=== PATIENT | female | born 1985 | race Caucasian/White ===

== ENCOUNTER → 2017-01-10 | Outpatient (CLI) | payer OTHER | LOC: FIMAGING 14:27 | PROVIDERS: ATTEND Obstetrics & Gynecology | DX: Z34.02 Encounter for supervision of normal first pregnancy, second trimester (principal); Z3A.19 19 weeks gestation of pregnancy ==

== ENCOUNTER → 2017-04-21 | Outpatient (CLI) | payer OTHER | LOC: FIMAGING 08:24 | PROVIDERS: ATTEND Obstetrics & Gynecology | DX: O36.5930 Maternal care for other known or suspected poor fetal growth, third trimester, not applicable or unspecified (principal); Z3A.34 34 weeks gestation of pregnancy ==

== ENCOUNTER → 2017-05-05 | Outpatient (CLI) | payer OTHER | LOC: FIMAGING 08:50 | PROVIDERS: ATTEND Obstetrics & Gynecology | DX: O36.5931 Maternal care for other known or suspected poor fetal growth, third trimester, fetus 1 (principal); Z3A.36 36 weeks gestation of pregnancy ==

== ENCOUNTER 2017-05-10 17:00 | Inpatient (IN) | payer OTHER ==
--- NOTE | 2017-05-10 12:48 | GHP ---
[f rep st] PREOP HISTORY AND PHYSICAL DATE OF ADMISSION: 05/10/2017 CHIEF COMPLAINT: Intrauterine at 37 and 0/7 weeks gestation with IUGR , and decreased movement. HISTORY OF PRESENT ILLNESS: Latrice is a 32-year-old, G1, P0 female who was diagnosed with IUGR at approximately 33 weeks gestation, has been undergoing NSTs that barely meet criteria for reactivity, and she has had less movement. Her Dopplers have been normal. Recommendation for delivery secondary to IUGR with complications. PAST MEDICAL HISTORY: Negative. PAST SURGICAL HISTORY: Had elbow surgery and removal of tonsils. FAMILY HISTORY: Noncontributory. 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 PHYSICAL EXAMINATION: VITAL SIGNS: Stable. ABDOMEN: Gravid, nontender. Estimated weight is 5-1/2 pounds. Her cervical exam, Valle will be placed. LABS: Significant for A positive, antibody screen negative. Rubella immune. RPR nonreactive. Hepatitis B surface antigen negative, HIV negative, gonorrhea and chlamydia negative, 1-hour glucose 71 and GBS was negative. ASSESSMENT AND PLAN: This is a 32-year-old, G1, P0, female who is at 37 and 0/ 7 weeks gestation, being induced for IUGR. Plan on Valle bulb placement and Pitocin and GBS is negative. /[id number]/MODL MTDD
[2017-05-10] MEDS ORDERED: LR 1,000 ML IV PRN (17:33)
[2017-05-10] MEDS ORDERED: TERBUTALINE SULFATE 1 MG/ML VIAL IV PRN (17:33)
[2017-05-10] MEDS ORDERED: OLIVE OIL 118 ML BTL MISC PRN (17:33)
[2017-05-10] MEDS ORDERED: OXYTOCIN/RINGERS LACTATE 1,000 ML IV PRN (17:33)
[2017-05-10] MEDS ORDERED: EPSOM SALT 454 GM TP PRN (17:33)
[2017-05-10] MEDS ORDERED: LIDOCAINE 1% 300 MG/30 ML SDV ONE (18:36)
[2017-05-10] MEDS ORDERED: TERBUTALINE SULFATE 1 MG/ML VIAL ONE (18:37)
[2017-05-10] MEDS ORDERED: AMMONIA AROMATIC 1 EACH AMP IH ONE (18:37)
[2017-05-10] MEDS ORDERED: MISOPROSTOL 200 MCG TAB ONE (18:37)
[2017-05-10] MEDS ORDERED: OXYTOCIN 10 UNIT/ML VIAL ONE (18:37)
[2017-05-10] MEDS ORDERED: OLIVE OIL 118 ML BTL ONE (18:37)
[2017-05-10] MEDS ORDERED: ACETAMINOPHEN 325 MG TAB PO PRN (18:39)
[2017-05-10] MEDS ORDERED: CALCIUM CARBONATE 500 MG CHEWABLE TAB PO PRN (18:40)
[2017-05-10] MEDS ORDERED: ZOLPIDEM TARTRATE 5 MG TAB PO PRN (18:40)
[2017-05-10 18:41] LABS: % IMMATURE GRANULYOCYTES 0.8 % (0.0-1.1); ABSOLUTE IMMATURE GRANULOCYTES 0.09 10^3/uL (0.00-0.10); ADD DIFF? NO; ADD MORPH? NO; ADD SCAN? NO; ATYPICAL LYMPHOCYTE FLAG 0 (0-99); FRAGMENT RBC FLAG 0 (0-99); HEMATOCRIT 37.4 % (38.0-47.0); LEFT SHIFT FLG 0 (0-99); LIPEMIA HEMOLYSIS FLAG 90 (0-99); MEAN CELL HEMOGLOBIN 32.6 pg (27.9-34.1); MEAN CELL HEMOGLOBIN CONCENTR. 34.8 g/dL (32.4-36.7); MEAN CELL VOLUME 93.7 fL (81.5-99.8); MEAN PLATELET VOLUME 10.3 fL (8.7-11.7); PLATELET CLUMPS FLAG 0 (0-99); PLATELET COUNT 207 10^3/uL (150-400); RED BLOOD CELL COUNT 3.99 10^6/uL (4.18-5.33); RED CELL DISTRIBUTION WIDTH 12.4 % (11.5-15.2)
[2017-05-11] MEDS: OXYTOCIN/LR *STANDARD DOSE PROTOCOL IV SCH ×2 (04:35→04:38)
--- NOTE | 2017-05-11 08:39 | OBPROG ---
OBG Labor Progress Note Assessment/Plan: Assessment: 32 yo @ 37 1/7, IOL for IUGR with decreased movement, doing well. Plan: 05/11/17 08:37 FWB reassuring. GBS neg. Epidural as desired. Expect . Subjective: 32 yo @ 37 1/7, IOL for IUGR with decreased movement, doing well. Feels mild contractions. Objective: 05/10/17 18:25 Patient ABO/Rh A POSITIVE 05/10/17 18:25 VSS - SVE Dilation (cm): 4 Effacement (%): 80 Station: -1 Cervantes Current Contraction Pattern: Regular FHR (bpm): 140 FHR Pattern Variability: Moderate FHR Category: 2 Membranes: AROM Amniotic Fluid Color: Clear - Procedures Non-surgical Procedures: Amniotomy Oxytocin Orders Assessment - Pre-Induction/Augmentation Assessment Gestational Age: 37 week(s) and 0 day(s) ICD10 Worksheet Patient Problems: Problems Problem Status Onset IUGR (intrauterine growth restriction) affecting care of mother Acute
[2017-05-11] MEDS ORDERED: fentaNYL 2MCG/ML/BUP 0.1% RTU 100 ML BAG EP ONE (10:11)
[2017-05-11] MEDS ORDERED: PHENYLEPHRINE HCL 100 MCG/ML SYR ONE (10:11)
[2017-05-11] MEDS ORDERED: BUPIVACAINE 0.25% 30 ML SDV ONE (10:11)
[2017-05-11] MEDS ORDERED: fentaNYL 100 MCG/2 ML INJ ONE (10:12)
--- NOTE | 2017-05-11 11:18 | PREANESOB ---
Obstetric Pre-Anesthesia Info - General Info Proposed Procedure: Labor and delivery with pitocin. : 1 Para: 0 WBD: 37 - Info Status: Full Term Monitors: External FHR Baseline (bpm): 130 FHR Pattern: Reassuring - Labor Status Cervical Dilation per last OB SVE: 4 Station per last OB SVE: -1 Pitocin: In Use Indications for Labor Analgesia: Induction of Labor, Pain Control Labor Epidural: Proposed Anesthesia ROS: Prior general anesthesia. Allergies/Adverse Reactions: Allergy/AdvReac Type Severity Reaction Status Date / Time No Known Allergies Allergy Unverified 05/10/17 17:30 Home Medications: Medication Instructions Recorded Vit27&Calcium/Iron/FA 1 tab 05/10/17 [] Visit Medications: Generic Name Dose Route Start Last Admin Trade Name Freq PRN Reason Stop Dose Admin Acetaminophen 650 mg 05/10/17 18:39 Tylenol PO 11/06/17 18:38 Q6H PRN HEADACHE Calcium Carbonate 500 - 1,000 mg 05/10/17 18:40 Tums PO 11/06/17 18:39 Q4H PRN GERD Lactated Ringer's 1,000 mls @ 0 mls/hr 05/10/17 17:33 05/11/17 04:30 Lr IV 11/06/17 17:32 1,000 mls PRN PRN Administration SEE PROTOCOL CONDITIONS Protocol Per Protocol Oxytocin/Lactated Ringer's 1,000 mls @ 150 mls/hr 05/10/17 17:33 Pitocin 20 Units/Lr (Premix) IV PRN PRN Post- bleeding Oxytocin/Lactated Ringer's 500 mls @ 0 mls/hr 05/11/17 04:00 05/11/17 04:38 Pitocin 30 Units/Lr (Premix) IV 11/07/17 03:59 500 mls CONT ANGEL Administration Protocol Per Protocol Ibuprofen 600 mg 05/10/17 17:33 Motrin PO 11/06/17 17:32 Q6HRS PRN post , inflammation Magnesium Sulfate 454 gm 05/10/17 17:33 Epsom Salt TP 11/06/17 17:32 Q1H PRN perineal discomfort [place] Oil 118 ml 05/10/17 17:33 Sweet Oil MISC 11/06/17 17:32 ONCE PRN preneal massage Terbutaline Sulfate 0.25 mg 05/10/17 17:33 Brethine IV 11/06/17 17:32 ONCE PRN Tachysystole Zolpidem Tartrate 5 mg 05/10/17 18:40 05/10/17 21:37 Ambien PO 11/06/17 18:39 5 mg HS PRN Administration Sleep/Insomnia Discontinued Medications Generic Name Dose Route Start Last Admin Trade Name Sky PRN Reason Stop Dose Admin Ammonia (Aromatic Spirit) Confirm 05/10/17 18:37 Ammonia Aromatic Administered 05/10/17 18:38 Dose 1 each IH .STK-MED ONE Bupivacaine HCl Confirm 05/11/17 10:11 Sensorcaine 0.25% Sdv Administered 05/11/17 10:12 Dose 30 ml .ROUTE .STK-MED ONE Ephedrine Sulfate Confirm 05/10/17 18:37 Ephedrine Sulfate Administered 05/10/17 18:38 Dose 50 mg .ROUTE .STK-MED ONE Fentanyl Confirm 05/11/17 10:12 Sublimaze Administered 05/11/17 10:13 Dose 100 mcg .ROUTE .STK-MED ONE Fentanyl/Bupivacaine HCl Confirm 05/11/17 10:11 Fentanyl/Bupivacaine/Ns 2 Mcg/Ml 0.1% (Premix Administered 05/11/17 10:12 Dose 100 ml EP .STK-MED ONE Lidocaine HCl Confirm 05/10/17 18:36 Lidocaine Hcl 1% Administered 05/10/17 18:37 Dose 300 mg .ROUTE .STK-MED ONE Misoprostol Confirm 05/10/17 18:37 Cytotec Administered 05/10/17 18:38 Dose 800 mcg .ROUTE .STK-MED ONE [place] Oil Confirm 05/10/17 18:37 Sweet Oil Administered 05/10/17 18:38 Dose 118 ml .ROUTE .STK-MED ONE Oxytocin Confirm 05/10/17 18:37 Pitocin Administered 05/10/17 18:38 Dose 40 unit .ROUTE .STK-MED ONE Phenylephrine HCl Confirm 05/11/17 10:11 Neosynephrine Administered 05/11/17 10:12 Dose 1,000 mcg .ROUTE .STK-MED ONE Terbutaline Sulfate Confirm 05/10/17 18:37 Brethine Administered 05/10/17 18:38 Dose 1 mg .ROUTE .STK-MED ONE - Anesthesia History Response to Local Anesthetics: Normal Anesthesia & Operative History: No Prior Problems Family Anesthesia History: Negative - Social History Substance Use/Abuse: Denies - Focused Exam Blood Pressure: 91/50 Heart Rate: 76 Respiratory Rate: 16 Height/Weight (Nursing): Height 171.45 cm Weight 90.265 kg Physical Exam: Within normal limits. ASA Status: II Labs: 05/10/17 18:25 Patient ABO/Rh A POSITIVE 05/10/17 18:25 - Plan Anesthetic Plan: CSE Consent Signed and on Chart: Yes Patient/Guardian Understands and Agrees to Plan: Yes Urgent/Emergent Case: Frederic blevins completed preop but documented later for safe timely pt care
[2017-05-11] MEDS ORDERED: PHENYLEPHRINE HCL 100 MCG/ML SYR IVP PRN (11:20)
[2017-05-11] MEDS ORDERED: ONDANSETRON 4 MG/2 ML VIAL IVP PRN (11:20)
--- NOTE | 2017-05-11 11:20 | POSTANESTH ---
Post Anesthetic Evaluation Cardiovascular Status: Normal, Stable Respiratory Status: Normal, Stable, Similar to Pre-op Cond. Level of Consciousness/Mental Status: Can Participate in Eval, Alert and Oriented Pain Control: Adequate, Prn Tx Ordered Nausea/Vomiting Control: Adequate, Prn Tx Ordered Complications Possibly Related to Anesthesia: None Noted
[2017-05-11] MEDS ORDERED: LR 500 ML IV SCH (11:30)
[2017-05-11] MEDS ORDERED: fentaNYL 2MCG/ML/BUP 0.1% RTU 100 ML EP SCH (11:30)
[2017-05-11] MEDS ORDERED: SIMETHICONE 80 MG TAB CHEW PO PRN (17:11)
[2017-05-11] MEDS ORDERED: HYDROCORTISONE 0.5% CREAM TP PRN (17:11)
--- NOTE | 2017-05-11 17:14 | OBDEL ---
Info Type: Vaginal GBS+: No Indications for Delivery: Growth Restriction w/Abnormal Doppler studies Vaginal Delivery - Labor and Delivery Onset of Contractions Date: 05/11/17 Onset of Contractions Time: 08:30 Onset of Contractions Type: Induced Rupture of Membranes Date: 05/11/17 Rupture of Membranes Time: 08:30 Rupture of Membranes Type: Artificial Amniotic Fluid Color: Clear Dilation Complete Date: 05/11/17 Dilation Complete Time: 13:00 Placenta Delivery Date: 05/11/17 Non-surgical Procedures: Amniotomy Laceration: 1st Degree Repair: 3-0, Vicryl Vaginal Sponge Count Correct: Yes Vaginal Needle Count Correct: Yes Vaginal Sweep Performed: No EBL: 300 ml Delivery Events: None - Medications Labor Augmentation/Induction Methods Used: Pitocin Labor Augmentation/Induction Indication: IUGR Data Cervantes Delivery Date: 05/11/17 Delivery Time: 15:30 BENJAMIN: 05/31/17 Gestational Age: 37 week(s) and 1 day(s) Sex of Infant: Female Score (1 Min): 8 Score (5 Min): 9 ICD10 Worksheet Patient Problems: Problems Problem Status Onset IUGR (intrauterine growth restriction) affecting care of mother Acute
--- NOTE | 2017-05-11 17:37 | OBGCSDC ---
General Delivery Information - General Info : 1 Para: 0 Delivery Physician/CNM: Jaye Beltran Admission Date: 05/11/17 Labs: Patient ABO/Rh A POSITIVE 05/10/17 18:25 Hct 37.4 % (38.0-47.0) L 05/10/17 18:25 Vaginal - Diagnosis Labor: Induced Rupture of Membranes Type: Artificial Amniotic Fluid Color: Clear Laceration: 1st Degree Repair: 3-0, Vicryl Delivery Events: None - Operations/Procedures Non-surgical Procedures: Amniotomy - Hospital Course Antepartum: IUGR with decreased movement Intrapartum: none : none - Delivery Type: Vaginal Non-surgical Procedures: Amniotomy EBL: 300 ml Data Cervantes Delivery Date: 05/11/17 Delivery Time: 15:30 BENJAMIN: 05/31/17 Gestational Age: 37 week(s) and 1 day(s) Sex of : Female Score (1 Min): 8 Score (5 Min): 9
[2017-05-11] MEDS: IBUPROFEN 600 MG TAB PO PRN (19:04)
[2017-05-12] MEDS: IBUPROFEN 600 MG TAB PO PRN ×4 (01:51→20:34)
--- NOTE | 2017-05-12 06:53 | SOAPPROG ---
SOAP Progress Note Assessment/Plan: Assessment: 39 yo @ 40 5/7, labor-doing well Plan: Rh +, rubella immune, plan on home tomorrow. 05/12/17 06:52 Subjective: 39 yo s/p , doing well. Objective: Vital Signs Temp Pulse Resp BP Pulse Ox 36.3 C 64 18 100/66 05/11/17 21:45 05/11/17 21:45 05/11/17 21:45 05/11/17 21:45 Laboratory Results 05/10/17 18:25 05/11/17 05/12/17 05/13/17 05:59 05:59 05:59 Output Total 1100 Balance -1100 Physical Exam - Physical Exam General Appearance: no apparent distress Respiratory: lungs clear Cardiac/Chest: regular rate, rhythm Abdomen: non-tender Skin: warm/dry Extremities: non-tender Neuro/Psych: oriented x 3 ICD10 Worksheet Patient Problems: Problems Problem Status Onset IUGR (intrauterine growth restriction) affecting care of mother Acute
[2017-05-12 08:36] VITALS: O2SAT 96
[2017-05-12] MEDS: DOCUSATE SODIUM 100 MG CAP PO PRN (20:35)
[2017-05-12 20:44] VITALS: PULSE 86; RESP 20; TEMP 96.7
[2017-05-12 20:48] VITALS: BP 109/73
[2017-05-13] MEDS: IBUPROFEN 600 MG TAB PO PRN ×2 (02:29→09:32)
--- NOTE | 2017-05-13 07:43 | OBGCSDC ---
General Delivery Information - General Info : 1 Para: 1 Delivery Physician/CNM: Jaye Beltran Labs: Patient ABO/Rh A POSITIVE 05/10/17 18:25 Hct 37.4 % (38.0-47.0) L 05/10/17 18:25 Vaginal - Diagnosis Labor: Induced Rupture of Membranes Type: Artificial Amniotic Fluid Color: Clear Laceration: 1st Degree Repair: 3-0, Vicryl Delivery Events: None - Operations/Procedures Non-surgical Procedures: Amniotomy L&D Analgesia/Anesthesia Type: Epidural, Local - Hospital Course Antepartum: IUGR with decreased movement Intrapartum: IOL at 37w0d, uncomplicated : Routine pp course. Rh pos, Rub imm - Delivery Non-surgical Procedures: Amniotomy L&D Analgesia/Anesthesia Type: Epidural, Local Data Cervantes Delivery Date: 05/11/17 Delivery Time: 15:50 BENJAMIN: 05/31/17 Gestational Age: 37 week(s) and 3 day(s) Sex of : Female [place] Weight (gm): 2267.962 g Score (1 Min): 8 Score (5 Min): 9 Discharge Information - Discharge Information Discharge Medications: Ibuprofen Condition: Good Instruction/Follow Up: Six Weeks Discharge Physician/CNM: Heike Gomes
[2017-05-13] MEDS: DOCUSATE SODIUM 100 MG CAP PO PRN (09:32)
== END 2017-05-13 13:20 | disposition home or self-care (01) | DRG 775 ==
LOC: FLD 17:05 → FOB 05-11 20:13
PROVIDERS: ADMIT Midwife; ATTEND Midwife
DX: O36.5931 Maternal care for other known or suspected poor fetal growth, third trimester, fetus 1 (principal); Z37.0 Single live birth; O36.8130 Decreased fetal movements, third trimester, not applicable or unspecified; O70.0 First degree perineal laceration during delivery; Z3A.37 37 weeks gestation of pregnancy
CPT/HCPCS: J2370; J2590; J3010; J3105

== ENCOUNTER → 2017-05-17 | Outpatient (CLI) | payer OTHER | LOC: FLACT 09:44 | PROVIDERS: ATTEND Obstetrics & Gynecology | DX: O92.4 Hypogalactia (principal) | CPT/HCPCS: G0463 ==

== ENCOUNTER → 2017-06-23 | Outpatient (CLI) | payer OTHER | LOC: FLACT 09:59 | PROVIDERS: ATTEND Obstetrics & Gynecology | DX: O92.5 Suppressed lactation (principal) | CPT/HCPCS: G0463 ==